=== PATIENT | male | born 1960 | race Caucasian/White ===

== ENCOUNTER 2017-08-16 07:11 | Emergency (ER) | payer BC ==
[2017-08-16 07:28] VITALS: BP 167/97
--- NOTE | 2017-08-16 09:15 | UC ---
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 Has h/o right ACL rear w/o repair about 10 yrs ago. Noted a scab on right patella that may have started the right knee swelling and tenderness, associated with small amount of clear drainage. Denies f/c - History of Current Complaint Chief Complaint: UCLowerExtremity Stated Complaint: KNEE PAIN Hx Obtained From: Patient Onset/Duration: Sudden Onset Severity Initially: Moderate Severity Currently: Moderate Pain Intensity: 6 Character: Aching, Throbbing Aggravating Factor(s): Movement Alleviating Factor(s): Rest Associated Signs And Symptoms: Positive: Swelling, Redness Able to Bear Weight: Yes - Allergies/Home Medications Allergies/Adverse Reactions: Allergies Allergy/AdvReac Type Severity Reaction Status Date / Time No Known Allergies Allergy Verified 08/16/17 07:28 PMH/Surg Hx/FS Hx/Imm Hx - Additional Past Medical History Additional PMH: kidney stones Previously Healthy: Yes - Surgical History Surgical History: Yes Surgery Procedure, Year, and Place: RLE SAPHENOUS VERICOSE VEIN, RIGHT KNEE 2011 RIGHT KNEE. [place]. LEFT URETERAL STENT, CYSTO, 08/2013, [facility] – [place] - Social History Alcohol Use: Occasionally Alcohol Amount: 4-5 PER WEEK Substance Use Type: None Smoking Status (MU): Never Smoked Tobacco Have You Smoked in the Last Year: No Review of Systems Constitutional: Negative Skin: Negative Eyes: Negative ENT: Negative Respiratory: Negative Cardiovascular: Negative Gastrointestinal: Negative Genitourinary: Negative Motor: Negative Neurovascular: Negative Musculoskeletal: Negative Neurological: Negative Psychological: Negative All Other Systems Reviewed And Are Negative: Yes Physical Exam Triage Information Reviewed: Yes Vital Signs: Initial Vital Signs Temp 37.1 C 08/16/17 07:19 Pulse 75 08/16/17 07:19 Resp 18 08/16/17 07:19 BP 167/97 08/16/17 07:19 Pulse Ox 98 08/16/17 07:19 Eye Exam: Normal ENT Exam: Normal Dental Exam: Normal Neck exam: Normal Neck: Positive: 1 Respiratory Exam: Normal Cardiovascular Exam: Normal Abdominal Exam: Normal Musculoskeletal: Positive: Other: - right patellar swellingand cellulitis Neurological Exam: Normal Psychological Exam: Normal Skin: Positive: Other - right patellar celluitis with warmth, calor and dolor, mild fluctuance with small abrasion with small amount of clear fluid draining, no blood or purulence observed Procedures - Procedure Summary Procedure Summary: Aspirated right anterior patellar swelling with 18G needle and and 60cc syringe with good decompression and evacuation of 10cc of serosanguinous fluid Knee Pain Course/Dx - Course Course Of Treatment: Aspirated right anterior patellar swelling with 18G needle and and 60cc syringe with good decompression and evacuation of 10cc of serosanguinous fluid - there is no knee joint swelling but rather superficial effusion above the patella. tx with PO clinda 300 TID x 10days. SENT OUT for body fliud gram stain, cell count and crystals to r/o other pathologies - Differential Dx/Diagnosis Differential Diagnosis/HQI/PQRI: Bursitis, Cellulitis, Contusion, Internal Derangement Of Knee, Sprain, Strain, Tendonitis Provider Diagnoses: right patellar effusion. elevated BP in acute illness Discharge - Sign-Out/Discharge Documenting (check all that apply): Discharge/Admit/Transfer - Discharge Plan Condition: Stable Disposition: HOME Prescriptions: Clindamycin HCl 300 mg PO TID 10 Days #30 capsule Patient Education Materials: Swollen Knee Joint (ED) Referrals: Chuck Chacon MD [Primary Care Provider] - - Billing Disposition and Condition Condition: STABLE Disposition: HOME
== END 2017-08-16 09:12 | disposition home or self-care (01) ==
LOC: UCEAST 07:11
DX: M25.461 Effusion, right knee (principal); R03.0 Elevated blood-pressure reading, without diagnosis of hypertension
CPT/HCPCS: 20610; 36415; 87070; 87077; 87186; 87205; 87640; 87641; 88173; 89051; 89060; 99212; G0463